=== PATIENT | male | born 1980 | race Caucasian/White ===

== ENCOUNTER 2016-08-22 15:59 | Emergency (ER) | payer OTHER ==
[2016-08-22 16:47] LABS: SPECIFIC GRAVITY 1.025 (1.001-1.030); URINE APPEARANCE CLEAR; URINE BILIRUBIN NEGATIVE (NEGATIVE); URINE BLOOD NEGATIVE (NEGATIVE); URINE COLOR DARK YELLOW; URINE GLUCOSE (UA) NEGATIVE (NEGATIVE); URINE LEUKOCYTE ESTERASE NEGATIVE (NEGATIVE); URINE NITRITE NEGATIVE (NEGATIVE); URINE PROTEIN TRACE (NEGATIVE); URINE UROBILINOGEN 1 mg/dL (0-1 mg/dl)
--- NOTE | 2016-08-22 17:13 | US ---
SCROTAL ULTRASOUND HISTORY: Bilateral scrotal pain. Scrotal sonography was performed. COMPARISON: 12/14/2006 MEASUREMENTS RIGHT TESTIS: 4.6 x 2.3 x 2.7 cm LEFT TESTIS: 4.6 x 2.2 x 2.4 cm RIGHT EPIDIDYMAL HEAD: 12 x 12 x 10 mm LEFT EPIDIDYMAL HEAD: 15 x 11 x 9 mm EPIDIDYMAL LESIONS: 2 mm epididymal head cyst versus spermatocele on the right. Suggested increase in vascularity of the right epididymis. FOCAL TESTICULAR LESIONS: Not. TESTICULAR BLOOD FLOW: Present and symmetric. FLUID COLLECTIONS: Minimal hydrocele on the left. Increased vascularity suggesting early changes of varicocele formation, which was noted previously. IMPRESSION: 1. Small varicoceles bilaterally. 2. Equivocal increase in vascularity of right-sided epididymis, which may reflect early epididymitis. 3. No focal testicular lesions with preserved testicular blood flow. Results were electronically transmitted to the electronic medical record at 08/22/2016 at 1709 hours.
[2016-08-22] MEDS ORDERED: DOXYCYCLINE HYCLATE 100 MG TABLET ONE (17:30)
== END 2016-08-22 17:51 | disposition home or self-care (01) ==
LOC: ED 15:59
DX: N45.1 Epididymitis (principal); I86.1 Scrotal varices
CPT/HCPCS: 81003; 76870; 99283 ×2; A9270